=== PATIENT | male | born 2000 | race Caucasian/White ===

== ENCOUNTER 2025-02-02 09:24 | Outpatient (CLI) | payer MEDICAID | END 2025-02-02 23:59 | disposition home or self-care (01) | LOC: MRI02 09:24 | PROVIDERS: ATTEND Family Medicine | DX: F81.9 Developmental disorder of scholastic skills, unspecified (principal); G31.9 Degenerative disease of nervous system, unspecified; Z87.898 Personal history of other specified conditions; E86.9 Volume depletion, unspecified | CPT/HCPCS: 70551 ==